=== PATIENT | female | born 1960 | race Hispanic/Latino ===

== ENCOUNTER 2024-10-14 18:09 | Observation (INO) | payer MEDICARE ==
[~2024-10-14] VITALS: Ht 162.6 cm; Wt 76.7 kg
[2024-10-14 18:39] LABS: BASOPHILS % 0.7 % (0.0-1.0); EOSINOPHILS % 2.1 % (0.0-6.0); LYMPHOCYTES % 30.9 % (18.0-39.1); MONOCYTES % 6.0 % (4.4-11.3); NEUTROPHILS % 60.1 % (38.7-80.0); RED CELL DISTRIBUTION WIDTH 11.9 % (11.7-14.4)
[2024-10-14 18:53] LABS: INR 0.92
[2024-10-14 19:03] LABS: EST GLOMERULAR FILTRATION RATE 90.0 ML/MIN (>=60)
[2024-10-14] MEDS: SODIUM CHLORIDE 0.9% 1000ML 1,000 ML IV STA (19:11)
[2024-10-14] MEDS ORDERED: SODIUM CHLORIDE 0.9% 100 ML ONE (19:25)
[2024-10-14] MEDS ORDERED: IOPAMIDOL 370 MG/ML 100 ML INFUS..BTL INJ ONE (19:25)
[2024-10-14] MEDS ORDERED: ONDANSETRON HCL INJ 2MG/ML 2ML 2 MG/ML VIAL IV PRN (20:15)
[2024-10-14] MEDS ORDERED: Morphine 4mg INJECTION 4 MG/ML INJ IV PRN (20:15)
[2024-10-14 20:45] VITALS: PULSE 98; RESP 16; TEMP 98.4
[2024-10-14] MEDS: SODIUM CHLORIDE 0.9% 1000ML 1,000 ML IV SCH (20:58)
[2024-10-14 21:15] VITALS: BP 160/72; PULSE 64; RESP 18; TEMP 98.1; O2SAT 100
[2024-10-14 21:30] VITALS: BP 160/72; PULSE 64; RESP 18; TEMP 98.1; O2SAT 100
[2024-10-14 21:40] VITALS: BP 160/72; PULSE 64; RESP 18; TEMP 98.1; O2SAT 100
[2024-10-14] MEDS ORDERED: ROSUVASTATIN CA20 MG PO (21:43)
[2024-10-14] MEDS ORDERED: HYDROCODON-ACE1 EA11 PO (21:43)
[2024-10-14] MEDS ORDERED: ZOLPIDEM TARTRAT5 MG PO (21:43)
[2024-10-14] MEDS: HYDRALAZINE HCL 20 MG/ML VIAL IV PRN (22:41)
[2024-10-14 23:24] VITALS: BP 148/79; PULSE 94; RESP 20; TEMP 98.2; O2SAT 98
[2024-10-15 03:11] VITALS: BP 154/71; PULSE 83; RESP 18; TEMP 98.3; O2SAT 100
[2024-10-15] MEDS: ACETAMINOPHEN 325 MG TAB PO PRN (04:31)
[2024-10-15 05:40] LABS: BASOPHILS % 1.1 % (0.0-1.0); EOSINOPHILS % 1.5 % (0.0-6.0); LYMPHOCYTES % 28.1 % (18.0-39.1); MONOCYTES % 6.6 % (4.4-11.3); NEUTROPHILS % 62.4 % (38.7-80.0); RED CELL DISTRIBUTION WIDTH 12.1 % (11.7-14.4)
[2024-10-15 06:06] LABS: EST GLOMERULAR FILTRATION RATE 98.0 ML/MIN (>=60)
[2024-10-15 08:00] VITALS: BP 143/63; PULSE 71; RESP 17; TEMP 97.9; O2SAT 100
[2024-10-15 11:45] VITALS: BP 153/70; PULSE 67; RESP 17; TEMP 97.9; O2SAT 100
== END 2024-10-15 16:20 | disposition left against medical advice (07) ==
LOC: ER 18:20 → ERHOLD 20:16 → MED/SURG2 21:13
PROVIDERS: ADMIT Internal Medicine; ATTEND Internal Medicine
DX: R20.0 Anesthesia of skin (principal); I10 Essential (primary) hypertension; S82.891D Other fracture of right lower leg, subsequent encounter for closed fracture with routine healing; S92.001D Unspecified fracture of right calcaneus, subsequent encounter for fracture with routine healing; Z53.29 Procedure and treatment not carried out because of patient's decision for other reasons
CPT/HCPCS: 36415; 70450; 70496; 70498; 70551; 71045; 80053; 82550; 82948; 83690; 83880; 84484; 85025; 85610; 93005; 99252; 99284; G0378; J0360; J7030; J7050; Q9967